=== PATIENT | male | born 1995 | race Hispanic/Latino ===

== ENCOUNTER 2016-09-20 13:22 | Emergency (ER) ==
[2016-09-20] MEDS ORDERED: DIPHTHERIA/TETANUS ADULT IM ONE (14:42)
--- NOTE | 2016-09-20 14:43 | PROVIDER DOCUMENTATION ---
HPI-Musculoskeletal Pain/Inj - GENERAL Chief Complaint: Laceration[s] Stated Complaint: LT THUMB LACERATION Time Seen by Provider: 09/20/16 14:22 Source: patient - HX OF PRESENT ILLNESS-MUSKULOSKELTAL Nature of Presenting Problem: "I CUT MY FINGER ON A CAR." Vital Signs Temp Pulse Resp BP Pulse Ox 09/20/16 15:17 83 18 131/78 100 09/20/16 13:32 98.3 F 89 16 110/55 100 No Known Allergies Allergy (Verified 09/20/16 14:22) Amoxicillin/Pot Clavulanate [Augmentin] 875 mg PO Q12HR #14 tablet 09/20/16 Ibuprofen 800 mg PO BID #20 tablet 09/20/16 Quality of Pain: reports: aching Severity in ED: mild Onset/Duration: just prior to arrival Timing: still present Modifying Factors: improves with: nothing Any recent injury?: Yes ("I CUT MY FINGER ON A CAR." ) Locality of Occurance: Work Similar Symptoms Previously?: No Recently seen or treated by another doctor?: No - FALL INJURY Location of Pain/Injury: reports: other (LEFT THUMB) Pain Radiation: reports: no radiation Loss of Consciousness: no loss of consciousness Injury Associated Symptoms: reports: denies symptoms - UPPER EXTREMITY PAIN/INJURY Context / Method of Injury: reports: other ('I CUT IT ON A CAR") Associated Symptoms: reports: denies symptoms Review of Systems - Adult - REVIEW OF SYSTEMS - ADULT Constitutional: reports: no symptoms reported Eyes: reports: no symptoms reported Ears, Nose, Mouth & Throat: reports: no symptoms reported Cardiovascular: reports: no symptoms reported Respiratory: reports: no symptoms reported Gastrointestinal: reports: no symptoms reported Genitourinary: reports: no symptoms reported Integumentary: reports: see HPI Neurological: reports: no symptoms reported Endocrine: reports: no symptoms reported Hematologic/Lymphatic: reports: no symptoms reported Allergic/Immunologic: reports: no symptoms reported All Other Systems: Reviewed and Negative Past History - Adult - PAST MEDICAL HISTORY-ADULT Review of Records: reports: Nursing Assessment Review, Medications Reviewed, Social history reviewed & non-contributory. Major Childhood Illnesses: reports: denies history Cardiovascular: reports: denies history Respiratory: reports: denies history Gastrointestinal: reports: denies history Obstetrical/Gynecological: reports: denies history Genitourinary: reports: denies history Physical Exam-Injury Related - Physical Exam-Injury Related General Appearance: appears well Eyes: PERRL/EOMI, pink conjunctivae Head, Ears, Nose, Mouth & Throat: normocephalic/atraumatic Neck: non-tender Respiratory: chest non-tender Cardiovascular: normal peripheral pulses, regular rate, rhythm Peripheral Pulses: radial (R): 3+, radial (L): 3+ Lymphatic: no adenopathy Extremity: normal range of motion Integumentary: other (LACERATION 1.5 CM LEFT THUMB) Neurologic: grossly normal Psych/Mental Status: normal mood/affect Procedures - LACERATION/WOUND REPAIR/FB Right Lower Finger Wound Location: Other: RIGHT THUMB Wound Length: 1.5 CM Wound's Depth, Shape: linear Wound Explored/Foreign Body: clean Irrigated with Saline?: Yes Prepped with: Hibiclens Anesthetic: 1% Volume of Anesthetic (ml's): 1 Wound Debrided: (NO DEBRIDEMENT) Wound Repaired with: Sutures Suture Size/Type: 4.0 Number of Sutures: 4 Deep Layer Suture Size/Type: 4.0, Nylon Sterile Dressing Applied?: Yes Splint Applied?: No Sling Applied?: No Post Procedure Neurovascular Exam: N/A Departure - Departure Time of Disposition Order: 15:06 DIAGNOSIS: Laceration of left thumb Qualifiers: Encounter type: initial encounter Qualified Code(s): S61.012A - Laceration without foreign body of left thumb without damage to nail, initial encounter Disposition: HOME 01 Certified Medical Emergency: Emergent Condition: Stable Additional Instructions: TAKE ALL OF ANTIBIOTIC. KEEP DRESSING ON FOR 2 DAYS THEN SOAP AND WATER--KEEP AREA CLEAN AND DRY. TAKE MOTRIN WITH FOOD. ED Follow Up Instructions: You have been treated by a care provider in the Emergency Department. These instructions are being provided to you so you can have an understanding of how to care for yourself upon discharge. Upon discharge from the Emergency Department, you are responsible for making arrangements for follow-up care by a physician of your choice. Take all prescribed medications as directed. Return to the Emergency Department immediately for any new or worsening symptoms. You may call the Physician Referral phone number at [phone] to obtain a list of Physicians who are taking new patients.RETURN IN 7-10 DAYS FOR SUTURE REMOVAL. Prescriptions: Amoxicillin/Pot Clavulanate [Augmentin] 875 mg PO Q12HR #14 tablet Ibuprofen 800 mg PO BID #20 tablet Referrals: None,PCP [Primary Care Provider] - Instructions: Laceration Care, Adult, [id number]
[2016-09-20] MEDS ORDERED: XYLOCAINE 1% INJ ONE (14:45)
[2016-09-20] MEDS ORDERED: XYLOCAINE 1% ONE (14:46)
[2016-09-20 15:17] VITALS: BP 131/78
== END 2016-09-20 15:17 | disposition home or self-care (01) ==
LOC: ED 13:22
DX: S61.012A Laceration without foreign body of left thumb without damage to nail, initial encounter (principal); M79.645 Pain in left finger(s); Z23 Encounter for immunization; W45.8XXA Other foreign body or object entering through skin, initial encounter
CPT/HCPCS: 90471; 90714